=== PATIENT | male | born 1985 ===

== ENCOUNTER 2024-04-24 20:56 | Emergency (ER) | payer OTHER ==
[2024-04-24] MEDS: Diphtheria,Pertussis(Acell),Tetanus Vaccine 0.5 ML Syringe IM ONE (21:25)
== END 2024-04-24 21:37 | disposition home or self-care (01) ==
LOC: DL.ED 20:56
DX: S01.01XA Laceration without foreign body of scalp, initial encounter (principal); W22.8XXA Striking against or struck by other objects, initial encounter; Z23 Encounter for immunization
CPT/HCPCS: 12001; 90471; 90715; 99283-25